=== PATIENT | male | born 1945 | race Caucasian/White ===

== ENCOUNTER 2017-12-08 10:55 | Emergency (ER) | payer MEDICARE, BC ==
[~2017-12-08] VITALS: Ht 177.8 cm; Wt 97.5 kg
[~2017-12-08 10:55] MED LIST: ALPHA-LIPOIC AC50 MG PO; ARMOUR THYROID60 MG PO; ASPIR 8181 MG PO; B COMPLEX PO; CALCIUM PO; CHLOR TABS PO; CYANOCOBAL1000 MCG/M IV; D3 PO; DESONIDE PO; DHEA TABLET1 EACH PO; FISH OIL 1,2001 EAC1 PO; MAGNESIUM500 MG PO; METFORMIN HCL1000 MG PO; RANITIDINE HCL150 MG PO; SAW PALMETTO450 MG PO; VITAMIN E400 UNI4 PO; ZESTRIL20 MG PO; [UNRECOGNIZED DRUG - OTHER]; [UNRECOGNIZED DRUG - OTHER] PO; [UNRECOGNIZED DRUG - OTHER] PO; [UNRECOGNIZED DRUG - OTHER] PO
--- OUTSIDE RECORDS SUMMARY | 2017-12-08 10:58 | XMS REPORT | Clinical Summary ---
Author Author [facility] Address Unknown Phone Unavailable Care Team Providers Care Cement Mixer Name Role Phone System, Not In MD PCP Unavailable Allergies No Known Allergies Current Medications Prescription Sig. Disp. Refills Start End Date Status Date magnesium gluconate Take 500 mg by mouth 2 Active (MAGONATE) 500 mg tablet (two) times a day. tablet DULoxetine (CYMBALTA) 60 Take 60 mg by mouth Active MG capsule daily. aspirin (ECOTRIN) 81 MG Take 81 mg by mouth Active enteric coated tablet daily. thyroid, pork, (ARMOUR Take 60 mg by mouth Active THYROID) 60 mg tablet daily. rosuvastatin (CRESTOR) 20 Take 20 mg by mouth Active MG tablet daily. liraglutide (VICTOZA) 0.6 Inject 1.2 mg under the Active mg/0.1 mL (18 mg/3 mL) skin daily with pen injector breakfast. hydroCHLOROthiazide Take 12.5 mg by mouth 2 11/30/19 Active (MICROZIDE) 12.5 mg once daily. 17 capsule amLODIPine (NORVASC) 10 Take 10 mg by mouth once 0 12/07/19 Active mg tablet daily. 17 lisinopril Take 20 mg by mouth 12/16/19 Discontin (PRINIVIL,ZESTRIL) 20 mg daily. 17 ued tablet Active Problems Problem Noted Date Lumbar stenosis 12/15/2016 Encounters Date Type Specialty Care Team Description 12/15/2016 [facility] General Surgery Gloria Naidu MD Lumbar stenosis (Primary - Encounter Dx) 12/16/2016 12/15/2016 Anesthesia General Surgery Ginger Matthews Event 12/15/2016 Procedure Pass General Surgery 12/15/2016 Surgery General Surgery Gloria Naidu MD POSTERIOR LUMABR DECOMPRESSION L2-3, L3-4 after 12/07/2016 Family History Medical History Relation Name Comments Alcohol abuse Father Asthma Mother Cancer Mother Relation Name Status Comments Father Mother Social History Tobacco Use Types Packs/Day Years Used Date Former Smoker Quit: 12/15/1982 Comments: quit in 1982 Alcohol Use Drinks/Week oz/Week Comments No Sex Assigned at Date Recorded Not on file Last Filed Vital Signs Vital Sign Reading Time Taken Blood Pressure 133/62 12/16/2016 6:57 AM CDT Pulse 79 12/16/2016 6:57 AM CDT Temperature 36.2 C (97.1 F) 12/16/2016 6:57 AM CDT Respiratory Rate 16 12/16/2016 6:57 AM CDT Oxygen Saturation 94% 12/16/2016 12:51 PM CDT Inhaled Oxygen - - Concentration Weight 99.3 kg (219 lb) 12/15/2016 11:20 AM CDT Height 177.8 cm (5' 10") 12/15/2016 11:20 AM CDT Body Mass Index 31.42 12/15/2016 11:20 AM CDT Plan of Treatment Health Maintenance Due Date Last Done Comments COLONOSCOPY 1996 SHINGRIX VACCINE (#1) 1996 ZOSTER VACCINE 2006 PNEUMOCOCCAL 12/24/2011 POLYSACCHARIDE VACCINE AGE 65 AND OVER PNEUMOCOCCAL-13 12/24/2011 INFLUENZA VACCINE 02/28/2018 Procedures Procedure Name Priority Date/Time Associated Diagnosis Comments CA AN ELECTIVE Routine 12/15/2016 ENDOTRACHEAL AIRWAY 2:33 PM CDT Procedure Note - Elda Ponce CRNA - 12/15/2016 2:32 PM CDT Airway Date/Time: 12/15/2016 1:50 PM Performed by: ELDA PONCE Authorized by: LUIS E LUGO Location: OR Urgency: Elective Difficult Airway: No Anesthesio logist: LUIS E LUGO Resident/C RNA: ELDA PONCE Performed by: resident/C RNA Preoxygena cornel with 100% O2: Yes C-spine Precaution s Maintained Throughout : Yes Mask Ventilatio n: Easy mask (with oral airway) Final Airway Type: Endotrache al airway Final Endotrache al Airway: ETT Cuffed: Yes Technique Used: Direct laryngosco py Insertion Site: Oral Blade Type: Miguel Laryngosco pe Blade/Vide olaryngosc ope Blade Size: 2 ETT Size (mm): 7.0 Cuff at minimum occlusion pressure: Yes Measured from: Lips ETT to Lips (cm): 23 Placement Verified by: CO2 detection, direct visualizat ion and equal breath sounds Laryngosco pic view: Grade III - view of epiglottis only Rapid Sequence Induction (RSI): No Modified RSI: No Number of Attempts at Approach: 1 LTA used during intubation . Teeth intact, atraumatic intubation POSTERIOR LUMABR 12/15/2016 SPINAL STENOSIS, STATUS DECOMPRESSION L2-3, L3-4 1:00 PM CDT POST LUMBAR FUSION Special Needs C-ARM after 12/07/2016 Results * POC glucose (12/16/2016 6:10 AM) Only the most recent of 4 results within the time period is included. Component Value Ref Range POC glucose 162 (H) 65 - 99 mg/dL Comment: Meter ID: [id number] Forms Analysis Manager: Lamont Barahona Specimen Performing Laboratory [facility] DEPARTMENT OF PATHOLOGY AND GENOMIC MEDICINE [address] [place] [address] * Estimated GFR (12/16/2016 4:45 AM) Only the most recent of 2 results within the time period is included. Component Value Ref Range GFR Non Af Amer 30 (A) mL/min/1.73 m2 GFR Af Amer 36 (A) mL/min/1.73 m2 Comment: Chronic kidney disease: <60 mL/min/1.73m2 Kidney failure: <15 mL/min/1.73m2 The estimated GFR is calculated from the IDMS-traceable Modification of Diet in Renal Disease Equation. The accuracy of the calculation is poor when the creatinine is normal. Calculated values >90 mL/min/1.73m2 are not reported. This equation has not been validated in children (<18 years), women, the elderly (>70 years), or ethnic groups other than Caucasians and Americans. Specimen Performing Laboratory Plasma specimen [facility] DEPARTMENT OF PATHOLOGY AND GENOMIC MEDICINE [address] [place] [address] * CBC with platelet and differential (12/16/2016 4:45 AM) Component Value Ref Range WBC 8.34 4.50 - 11.00 k/uL RBC 3.96 (L) 4.40 - 6.00 m/uL HGB 12.2 (L) 14.0 - 18.0 g/dL HCT 36.1 (L) 41.0 - 51.0 % MCV 91.2 82.0 - 100.0 fL MCH 30.8 27.0 - 34.0 pg MCHC 33.8 31.0 - 37.0 g/dL RDW - SD 44.7 37.0 - 55.0 fL MPV 10.1 8.8 - 13.2 fL Platelet count 167 150 - 400 k/uL Nucleated RBC 0.00 /100 WBC Neutrophils 86.5 (H) 39.0 - 69.0 % Lymphocytes 7.0 (L) 25.0 - 45.0 % Monocytes 6.0 0.0 - 10.0 % Eosinophils 0.0 0.0 - 5.0 % Basophils 0.1 0.0 - 1.0 % Immature granulocytes 0.4Comment: "Immature granulocytes" 0.0 - 1.0 % (promyelocytes, myelocytes, metamyelocytes) Specimen Performing Laboratory Blood [facility] DEPARTMENT OF PATHOLOGY AND GENOMIC MEDICINE [id number] [place] [address] [place] [address] * Renal function panel (12/16/2016 4:45 AM) Component Value Ref Range Sodium 137 135 - 148 mEq/L Potassium 4.6 3.5 - 5.0 mEq/L Chloride 98 98 - 112 mEq/L CO2 27 24 - 31 mEq/L Anion gap 12 7 - 15 mEq/L Comment: Starting from October , anion gap calculation no longer incorporates potassium. Please note the change. BUN 33 (H) 8 - 23 mg/dL Creatinine 2.2 (H) 0.7 - 1.2 mg/dL Glucose 195 (H) 65 - 99 mg/dL Calcium 8.1 (L) 8.8 - 10.2 mg/dL Albumin 3.7 3.5 - 5.0 g/dL Phosphorus 3.6 2.4 - 4.5 mg/dL Specimen Performing Laboratory Plasma specimen [facility] DEPARTMENT OF PATHOLOGY AND [facility] [id number] [place] [address] [place] [address] * XR Lumbar Spine 1 Vw (12/15/2016 6:14 PM) Specimen Performing Laboratory [facility] [address] [place] [address] Narrative EXAMINATION:XR LUMBAR SPINE 1 VW CLINICAL HISTORY: COMPARISON:None. IMPRESSION: Intraoperative lateral localization radiograph demonstrates multiple surgical instruments and pedicle screws/interconnecting rods. [id number] Procedure Note Interface, Radiology Results Incoming - 12/15/2016 6:19 PM CDT EXAMINATION: XR LUMBAR SPINE 1 VW CLINICAL HISTORY: COMPARISON: None. IMPRESSION: Intraoperative lateral localization radiograph demonstrates multiple surgical instruments and pedicle screws/interconnecting rods. [id number] * OR [place] < 1 Hour (12/15/2016 5:39 PM) Specimen Performing Laboratory [facility] [address] [place] [address] Addenda Addendum by Kamlesh Rojas MD on 12/15/2016 5:43 PM ADDENDUM #1 . Narrative EXAMINATION:OR [place] 1 HOUR C-arm fluoroscopy was requested in OR.FLUORO TIME 00:11 IMPRESSION: Separate operative report will be issued by the physician performing the procedure. [id number] Procedure Note Hm Interface, Radiology Results Incoming - 12/15/2016 5:45 PM CDT EXAMINATION: OR FL 1 HOUR C-arm fluoroscopy was requested in OR. FLUORO TIME 00:11 IMPRESSION: Separate operative report will be issued by the physician performing the procedure. [id number] * Basic metabolic panel (12/15/2016 10:55 AM) Component Value Ref Range Sodium 141 135 - 148 mEq/L Potassium 4.7 3.5 - 5.0 mEq/L Chloride 100 98 - 112 mEq/L CO2 28 24 - 31 mEq/L Anion gap 13 7 - 15 mEq/L Comment: Starting from October , anion gap calculation no longer incorporates potassium. Please note the change. BUN 28 (H) 8 - 23 mg/dL Creatinine 1.9 (H) 0.7 - 1.2 mg/dL Glucose 147 (H) 65 - 99 mg/dL Calcium 9.6 8.8 - 10.2 mg/dL Specimen Performing Laboratory Plasma specimen [facility] DEPARTMENT OF PATHOLOGY AND GENOMIC MEDICINE [address] [place] [address] * Type and screen (12/12/2016 4:20 PM) Component Value Ref Range ABO grouping O Rh type POS Antibody screen NEG Specimen Performing Laboratory Blood [facility] DEPARTMENT OF PATHOLOGY AND GENOMIC MEDICINE [address] [place] [address] after 12/07/2016 Insurance Payer Benefit Subscriber ID Type Phone Address Plan / Group MEDICARE RAILROAD MEDICARE xxxxxxxxxx Medicare RAILROAD BCBS BCBS OUT xxxxxxxxxxxx PPO OF STATE Home: [facility] ABE amily ASHLEE FRASER [phone]
[2017-12-08] MEDS ORDERED: IBUPROFEN 400 MG TAB PO ONE (11:15)
--- NOTE | 2017-12-08 11:16 | Progress Note ---
DATE: NO DICTATION, LENGTH 5 SECONDS. Job#: [id number]
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
[2017-12-08] MEDS ORDERED: LIDOCAINE HCL 1% LOCAL INJ 20 ML VIAL INJ ONE (13:00)
[2017-12-08 14:09] VITALS: BP 147/79
== END 2017-12-08 14:17 | disposition home or self-care (01) ==
LOC: ER 10:55
DX: S06.0X0A Concussion without loss of consciousness, initial encounter (principal); S61.217A Laceration without foreign body of left little finger without damage to nail, initial encounter; S00.31XA Abrasion of nose, initial encounter; Y93.52 Activity, horseback riding; W55.12XA Struck by horse, initial encounter; Y92.008 Other place in unspecified non-institutional (private) residence as the place of occurrence of the external cause; I10 Essential (primary) hypertension; E11.9 Type 2 diabetes mellitus without complications; Z95.5 Presence of coronary angioplasty implant and graft
CPT/HCPCS: 12001; 70450; 70486; 71046; 72125; 72170; 73130; 99284; J2001

== ENCOUNTER → 2022-10-14 | Day surgery (SDC) | payer BC, MEDICARE ==
[2022-10-11 14:36] LABS: BASOPHILS # (AUTO) 0.1 (0.0-0.1); BASOPHILS % 1.1 % (0.0-1.0); EOSINOPHILS # (AUTO) 0.3 (0.0-0.4); EOSINOPHILS % 3.7 % (0.0-6.0); HEMATOCRIT 39.5 % (38.2-49.6); HEMOGLOBIN 12.4 g/dL (14.0-18.0); LYMPHOCYTES # (AUTO) 1.7 (1.0-3.2); LYMPHOCYTES % 23.8 % (18.0-39.1); MEAN CORPUSCULAR HEMOGLOBIN 25.6 pg (28-32); MEAN CORPUSCULAR HGB CONC 31.4 g/dL (31-35); MEAN CORPUSCULAR VOLUME 81.4 fL (81-99); MONOCYTES # (AUTO) 0.5 (0.2-0.8); MONOCYTES % 7.5 % (4.4-11.3); NEUTROPHILS # (AUTO) 4.5 (2.1-6.9); NEUTROPHILS % 63.8 % (38.7-80.0); PLATELET COUNT 230 x10e3/uL (140-360); RED BLOOD COUNT 4.85 x10e6/uL (4.3-5.7); RED CELL DISTRIBUTION WIDTH 17.8 % (11.7-14.4)
[~2022-10-14] MED LIST changes: +EPHEDRINE SULFATE INJ 50 MG/ML VIAL ONE; +FARXIGA10 MG PO; +FENTANYL CITRATE/PF 100MCG/2 ML INJ ONE; +FLOMAX0.4 MG PO; +FLONASE ALLERG9.9 ML INH; +LIDOCAINE HCL 2% LOCAL INJ 5 ML SDV VIAL INJ ONE; +LIVALO2 MG PO; +METOPROLOL SUCC25 MG PO; +MIDAZOLAM HCL 2 MG/2 ML VIAL ONE; +MIDODRINE HCL5 MG PO; +NAMENDA5 MG PO; +POVIDONE IODINE 0.05% 0.05 % ML PO ONE; +PRISTIQ ER50 MG PO; +PROPOFOL IV EMULSION 10 MG/ML 20 ML VIAL ONE; +SYMBICORT 16010.2 GM INH; +TESTOSTERONE PO; +TRAZODONE HCL50 MG PO; +TRULICITY4.5 MG/0.5 SC
[2022-10-14 11:10] VITALS: BP 106/61
== END | disposition home or self-care (01) ==
LOC: OR 06:37
PROVIDERS: ATTEND Internal Medicine Gastroenterology
DX: Z09 Encounter for follow-up examination after completed treatment for conditions other than malignant neoplasm (principal); D12.0 Benign neoplasm of cecum; D12.2 Benign neoplasm of ascending colon; K57.30 Diverticulosis of large intestine without perforation or abscess without bleeding; K59.09 Other constipation; K64.8 Other hemorrhoids; Z71.3 Dietary counseling and surveillance; E11.9 Type 2 diabetes mellitus without complications; I25.810 Atherosclerosis of coronary artery bypass graft(s) without angina pectoris; I10 Essential (primary) hypertension; E78.00 Pure hypercholesterolemia, unspecified; E03.9 Hypothyroidism, unspecified; M54.2 Cervicalgia; Z01.810 Encounter for preprocedural cardiovascular examination; Z01.812 Encounter for preprocedural laboratory examination; Z79.85 Long-term (current) use of injectable non-insulin antidiabetic drugs; Z79.84 Long term (current) use of oral hypoglycemic drugs; Z79.899 Other long term (current) drug therapy; Z68.26 Body mass index [BMI] 26.0-26.9, adult; Z86.16 Personal history of COVID-19; Z95.1 Presence of aortocoronary bypass graft
CPT/HCPCS: 36415 ×2; 45385; 82948; 85025; 93005; J2001; J2250; J2704; J3010; 45378; 45380